=== PATIENT | male | born 1955 | race Caucasian/White ===

== ENCOUNTER 2017-05-29 06:15 | Day surgery (SDC) | payer BC, OTHER ==
[2017-05-29] MEDS ORDERED: TETRACAINE HCL 0.5% 15 ML OPTH BTL OPTH ONE (13:21)
[2017-05-29] MEDS ORDERED: LIDOCAINE 2% MDV (20MG/ML) 20ML VIAL IV ONE ×2 (13:21→15:07)
[2017-05-29] MEDS ORDERED: EPINEPHRINE 1 MG/ML AMPUL SQ ONE (13:21)
[2017-05-29] MEDS ORDERED: NEOMYCIN/POLY./DEXAM OPTH OINT OPTH ONE (13:21)
--- NOTE | 2017-05-29 14:58 | OP NOTE CHAMES ---
DATE OF PROCEDURE: 05/29/17 PREOPERATIVE DIAGNOSIS: Nuclear sclerotic cataract, left eye. POSTOPERATIVE DIAGNOSIS: Nuclear sclerotic cataract, left eye. OPERATION: Phacoemulsification of cataractous lens with implantation of intraocular lens. LENS IMPLANT USED: Lee Model PCB00 + 18.0 diopters. COMPLICATIONS: None. PROCEDURE IN DETAIL: Following a retrobulbar and facial block, the patient was prepped and draped in the usual fashion for eye surgery. A lid speculum was placed in the left eye after which a 2.4 mm tunnel wound was placed at the temporal limbus and dissected into clear cornea. A paracentesis was placed at 2 oclock hours to the left and right of the initial incision and the chamber deepened with Viscoelastic. The keratome was then used to enter the anterior chamber after which the continuous circular capsulorrhexis was accomplished without difficulty using a bent needle and a Utrata forceps. Hydrodissection and hydrodelineation of the lens was performed after which the nucleus of the lens was removed using the Phaco handpiece in the [id number] technique. The residual cortical material was irrigated and aspirated from the eye after which the bag and chamber were re-examined. The bag was re-inflated with Viscoelastic and the intraocular lens injected into the capsular bag where it centered well. The Viscoelastic was then copiously irrigated and aspirated from the eye after which the temporal tunnel wound and paracentesis were hydrated and the wounds were examined. They were noted to be watertight. The lid speculum was removed from the eye and the eye patched and shielded. The patient was transferred to the recovery room in satisfactory condition and given an appointment to be reexamined in the clinic later today or as directed by Dr. Aguilera. Go Aguilera M.D. Date & Time JOB NUMBER: [id number] MTDD
[2017-05-29] MEDS ORDERED: PROPOFOL 10 MG/ML VIAL IV ONE (15:07)
== END 2017-05-29 08:58 | disposition home or self-care (01) ==
LOC: SUR 06:15
PROVIDERS: ATTEND Ophthalmology
DX: H25.12 Age-related nuclear cataract, left eye (principal); F17.200 Nicotine dependence, unspecified, uncomplicated; I10 Essential (primary) hypertension; G47.33 Obstructive sleep apnea (adult) (pediatric); Z98.890 Other specified postprocedural states
CPT/HCPCS: J0171

== ENCOUNTER 2017-06-19 08:14 | Day surgery (SDC) | payer BC, OTHER ==
[2017-06-19] MEDS ORDERED: LIDOCAINE 2% MDV (20MG/ML) 20ML VIAL IV ONE ×2 (14:15→14:27)
[2017-06-19] MEDS ORDERED: ALFENTANIL HCL 500 MCG/1ML, 2ML AMP IV ONE (14:15)
[2017-06-19] MEDS ORDERED: PROPOFOL 10 MG/ML VIAL IV ONE (14:15)
[2017-06-19] MEDS ORDERED: TETRACAINE HCL 0.5% 15 ML OPTH BTL OPTH ONE (14:27)
[2017-06-19] MEDS ORDERED: NEOMYCIN/POLY./DEXAM OPTH OINT OPTH ONE (14:27)
[2017-06-19] MEDS ORDERED: TETRACAINE HCL 0.5% OPTH 2ML SOLU OPTH ONE (14:27)
[2017-06-19] MEDS ORDERED: LIDOCAINE 1% MPF 100MG/10ML STERILE-PAK AMPULE IV ONE (14:27)
[2017-06-19] MEDS ORDERED: TOBRAMYCIN 0.3% OPTH DROP 5 ML BTL OPTH ONE (14:27)
[2017-06-19] MEDS ORDERED: DICLOFENAC SODIUM 2.5 ML DROPS OPTH ONE (14:27)
[2017-06-19] MEDS ORDERED: PREDNISOLONE ACETATE 1% OPTH 10ML BOTTLE OPTH ONE (14:27)
[2017-06-19] MEDS ORDERED: EPINEPHRINE 1 MG/ML AMPUL SQ ONE (14:27)
[2017-06-19] MEDS ORDERED: CIPROFLOXACIN HCL 0.0015 GM, PHENYLEPHRINE HCL 0.0125 GM, KETOROLAC TROMETHAMINE 0.0006... MC ONE ×5 (14:30)
--- NOTE | 2017-06-19 20:36 | OP NOTE CHAMES ---
DATE OF PROCEDURE: 06/19/17 PREOPERATIVE DIAGNOSIS: Nuclear sclerotic cataract, right eye. POSTOPERATIVE DIAGNOSIS: Nuclear sclerotic cataract, right eye. OPERATION: Phacoemulsification of cataractous lens with implantation of intraocular lens. LENS IMPLANT USED: Lee Model PCB00 + 17.5 diopters. COMPLICATIONS: None. PROCEDURE IN DETAIL: Following a retrobulbar and facial block, the patient was prepped and draped in the usual fashion for eye surgery. A lid speculum was placed in the right eye after which a 2.4 mm tunnel wound was placed at the temporal limbus and dissected into clear cornea. A paracentesis was placed at 2 oclock hours to the left and right of the initial incision and the chamber deepened with Viscoelastic. The keratome was then used to enter the anterior chamber after which the continuous circular capsulorrhexis was accomplished without difficulty using a bent needle and a Utrata forceps. Hydrodissection and hydrodelineation of the lens was performed after which the nucleus of the lens was removed using the Phaco handpiece in the [id number] technique. The residual cortical material was irrigated and aspirated from the eye after which the bag and chamber were re-examined. The bag was re-inflated with Viscoelastic and the intraocular lens injected into the capsular bag where it centered well. The Viscoelastic was then copiously irrigated and aspirated from the eye after which the temporal tunnel wound and paracentesis were hydrated and the wounds were examined. They were noted to be watertight. The lid speculum was removed from the eye and the eye patched and shielded. The patient was transferred to the recovery room in satisfactory condition and given an appointment to be reexamined in the clinic later today or as directed by Dr. Aguilera. Go Aguilera M.D. Date & Time JOB NUMBER: [id number] MTDD
== END 2017-06-19 10:59 | disposition home or self-care (01) ==
LOC: SUR 08:14
PROVIDERS: ATTEND Ophthalmology
DX: H25.11 Age-related nuclear cataract, right eye (principal); E78.00 Pure hypercholesterolemia, unspecified; I10 Essential (primary) hypertension
CPT/HCPCS: J0171; J3490

== ENCOUNTER 2017-08-31 18:26 | Emergency (ER) | payer BC, OTHER ==
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
[2017-08-31] MEDS ORDERED: IPRATROPIUM/ALBUTEROL (0.5MG/3MG) NEB INH ONE (19:05)
[2017-08-31] MEDS ORDERED: METHYLPREDNISOLONE PF 125MG/VIAL IVP ONE (19:05)
[2017-08-31 19:27] LABS: BASO % 0.2 % (0-6); EOS % 2.4 % (0-6); GRAN % 72.4 % (47-80); HEMATOCRIT 44.1 % (42.0-52.0); HEMOGLOBIN 14.4 gm/dl (14.0-18.0); LYMPH % 15.7 % (16-45); MEAN CELL VOLUME 93.8 fl (81-97); MEAN CORPUSCULAR HEMOGLOBIN 30.6 pg (27-33); MEAN CORPUSCULAR HGB CONC 32.7 g/dl (32-36); MEAN PLATELET VOLUME 9.5 fl (7.4-10.4); MONO % 9.3 % (0-9); PLATELET COUNT 223 K/uL (130-400); RED CELL DISTRIBUTION WIDTH 13.4 % (11.5-14.5); WHITE BLOOD COUNT W/O DIFF 10.1 K/uL (4.2-12.2)
[2017-08-31 19:40] LABS: BLOOD UREA NITROGEN 13 mg/dL (8-23); CREATININE 1.1 mg/dL (0.7-1.2); EST GLOMERULAR FILTRATION RATE > 60 mL/min; GLUCOSE,RANDOM 112 mg/dL (74-109)
[2017-08-31] MEDS ORDERED: AZITHROMYCIN 500 MG TABLET PO ONE (19:48)
[2017-08-31] MEDS ORDERED: ALBUTEROL SULFATE (0.083%) 2.5 MG/3 ML NEB INH ONE (19:52)
--- NOTE | 2017-09-01 13:12 | RADIOLOGY REPORT ---
EXAM: CHEST, TWO VIEWS HISTORY: PRODUCTIVE COUGH FOR THREE DAYS. TECHNIQUE: PA and lateral views of the chest were obtained. Comparison: Two view chest 11/12/16. FINDINGS: The heart size is normal. There again is likely coronary artery calcification on the left. The lungs again appear hyperinflated suggesting COPD. No definite acute infiltrate is seen and no pleural effusion or pneumothorax evident. IMPRESSION: 1. HYPERINFLATION SUGGESTING COPD. 2. CORONARY ARTERY CALCIFICATION LIKELY PRESENT BEFORE. 3. NO ACUTE INFILTRATE IDENTIFIED. JOB NUMBER: [id number] [facility]
== END 2017-08-31 20:21 | disposition home or self-care (01) ==
LOC: ER 18:26
DX: J44.1 Chronic obstructive pulmonary disease with (acute) exacerbation (principal); F17.210 Nicotine dependence, cigarettes, uncomplicated; T59.811A Toxic effect of smoke, accidental (unintentional), initial encounter; J70.5 Respiratory conditions due to smoke inhalation
CPT/HCPCS: 71020; 80048; 85025; 93005; 93010; 94640; 96374; 99284; J2930; J7613

== ENCOUNTER 2018-08-28 13:02 | Day surgery (SDC) | payer MEDICARE, BC, OTHER ==
[2018-08-28] MEDS ORDERED: LIDOCAINE 2% MDV (20MG/ML) 20ML VIAL IV ONE (13:03)
[2018-08-28] MEDS ORDERED: PROPOFOL 10 MG/ML VIAL IV ONE (13:03)
[2018-08-28] MEDS ORDERED: IPRATROPIUM/ALBUTEROL (0.5MG/3MG) NEB INH ONE (14:30)
--- NOTE | 2018-08-31 09:30 | Operative Note ---
DATE OF SURGERY: SURGEON: Jonathon Troncoso MD OPERATION: ESOPHAGOGASTRODUODENOSCOPY. INDICATIONS: This is a 63-year-old male with history of intermittent episodes of dysphagia who presented for esophagogastroduodenoscopy. POSTOPERATIVE DIAGNOSES: 1. Normal esophagus with no specific stricture, status post Alexander dilatation to 60-Telugu. 2. Normal stomach and duodenum. ANESTHESIA: Sedation is per Anesthesia. Pulse oximetry was monitored throughout the procedure to maintain O2 saturation of 90% or greater. Supplemental oxygen was administered via nasal cannula. Cardiac and vital signs were monitored throughout the duration of the procedure, and they were stable. The procedure of esophagogastroduodenoscopy and risks and benefits of the procedure, including the risk of bleeding and perforation, among others, were explained to the patient who voiced understanding and agreed to have the procedure done. Physical examination was performed, and the patient was found stable for sedation. PROCEDURE: The patient was placed in the left lateral position. Sedation was initiated. A plastic bite block was inserted into the oral cavity. The Olympus [id number] gastroscope was introduced into the oral cavity and advanced to the proximal esophagus without difficulty. The esophageal mucosa was carefully examined upon introduction of the gastroscope. The proximal and mid and distal esophageal mucosa appeared normal. The gastroscope was then advanced into the stomach, and surveillance of the stomach revealed normal gastric fundus, body, and antrum. No ulcers were noted. The gastroscope was then advanced to the descending duodenum without difficulty. The duodenal bulb and descending duodenum appeared normal. The gastroscope was then withdrawn into the stomach and retroflexion was performed. There were no other lesions noted. The gastroscope was then withdrawn while carefully examining the gastric and esophageal mucosa. No other lesions noted. Multiple mid esophageal biopsies were obtained to rule out eosinophilic esophagitis. The gastroscope was then withdrawn and the Alexander dilator size 60-frech was then passed into the stomach with minimal resistance. The Alexander dilator was then withdrawn and the procedure was terminated. The patient tolerated the procedure well without any immediate complications. The patient remained with stable vital signs and was transferred to the recovery room. RECOMMENDATIONS: 1. The patient is to continue on his proton pump inhibitors. 2. I will see him back in the office as needed. Thank you for allowing me to participate in the care of your patient. CC: DO SHANEKA Curry
== END 2018-08-28 14:55 | disposition home or self-care (01) ==
LOC: HOP 13:02
PROVIDERS: ATTEND Internal Medicine Gastroenterology
DX: R13.10 Dysphagia, unspecified (principal); I10 Essential (primary) hypertension; E78.00 Pure hypercholesterolemia, unspecified; J44.9 Chronic obstructive pulmonary disease, unspecified
CPT/HCPCS: 94640